=== PATIENT | female | born 1960 | race Caucasian/White ===

== ENCOUNTER → 2024-06-28 06:33 | Outpatient (REF) | payer OTHER, SELFPAY | LOC: HWWDC 06:33 | PROVIDERS: ATTENDING PHYSICIAN Family Medicine | DX: Z12.31 Encounter for screening mammogram for malignant neoplasm of breast (principal) | CPT/HCPCS: 77063; 77067 ==

== ENCOUNTER 2025-06-19 18:06 | Emergency (ER) | payer OTHER, SELFPAY ==
[2025-06-19 18:08] VITALS: BP 146/90
[2025-06-19 18:39] LABS: Urine Character Clear (Clear)
[2025-06-19 18:53] VITALS: BP 129/88
[2025-06-19 19:03] LABS: Urine White Cell 0-2 /HPF (0-5)
--- NOTE | 2025-06-19 19:23 | ED.GENMED ---
History of Present Illness
General
Chief Complaint: Back Pain
Source: patient and spouse
Exam Limitations: none
Time Seen by Provider: 06/19/25 19:04
Nursing documentation reviewed up to this point in time: agreed with
History of Present Illness
History of Present Illness:
64-year-old female with history as noted presents to the ER for evaluation of flank/back pain. Patient reports onset of symptoms 5 days ago and they have been constant since that time although she reports that the intensity waxes and wanes. She
describes a vague deep aching in the right flank that does not radiate. No clear triggering or relieving factors noted�she denies any injury and she says that it is not necessarily related to movement. She denies any radicular symptoms down the
legs. Denies any bowel or bladder incontinence, saddle anesthesia. She denies any dysuria, hematuria, change in frequency, fevers or chills. She denies similar symptoms in the past however chart review shows a visit in 2012 as well as in 2014
with similar symptoms. She says she initially saw her primary doctor Monday and was told it could be a pinched nerve and was prescribed prednisone but after 3 days of prednisone has not noticed significant improvement which prompted ER visit.
Past History
Past History
ED Past Medical History: GERD and Other (Irritable bowel syndrome)
ED Past Surgical History: Orthopedic (Right shoulder and right hand surgery)
Social History
Tobacco: Non-smoker
Alcohol: None
Drug: None
Personal:
Living: with family
Employment: Employed
Review of Systems
Review of Systems
All Other Systems: ROS reviewed and negative except as documented in HPI and ROS
Constitutional: Denies fever or chills
Respiratory: Denies trouble breathing
Cardiac: Denies chest pain
ABD/GI: Denies abdominal pain, nausea or vomiting
: Reports flank pain; Denies dysuria, frequency or bleeding
Musculoskeletal: Reports back pain; Denies neck pain
Neurological: Denies dizzy, headache, weakness or numbness
Phy Exam
Physical Exam
Physical Exam:
General: Awake, alert, oriented x3; no acute distress
Head: Normocephalic, atraumatic
Eyes: Conjunctiva normal, sclera anicteric
Throat: Airway intact, handling secretions
Neck: Trachea midline, supple without meningismus
Lungs: Breathing comfortably without distress
Heart: Regular rate
Abd: Soft, non distended, nontender with no palpable masses
Back: No midline tenderness in the thoracic or lumbar spine and no reproducible tenderness in the paraspinal musculature; negative straight leg raise test bilaterally
Neuro: Cranial nerves grossly intact, speech fluid, motor and sensory intact in the lower extremities bilaterally
Skin: No rash in area of concern
Extremities: No edema in extremities, equal pulses in all extremities
Scores
Heart Failure Risk
Heart Failure Risk Score: Not Applicable
Heart Score for Chest Pain Patients
STEMI patient?: Not applicable
Withdrawal Assessment of Alcohol
Withdrawal Assessment Completed?: Not applicable
Course
Orders/Labs/Results
Orders:
Orders
06/19/25 18:17
Urinalysis Reflex To Culture Urgent
Date Specimen was Collected: 06/19/25
Time Specimen was Collected: 18:12
Urine Microscopic Reflex Cult Urgent
Urine Culture Urgent
EPI Source: U
Specimen Description:
Date Specimen was Collected: 06/19/25
Time Specimen was Collected: 18:12
06/19/25 19:05
CT Abd/pel Without Iv Or Oral Urgent
Comment:
Reason For Exam: right flank pain/low back pain
06/19/25 19:14
Complete Blood Count/With Diff Urgent
Comprehensive Metabolic Panel Urgent
Abnormal Lab Results
06/19/25 06/19/25
18:17 19:14
RBC 3.86 L 10^6/uL
(4.20-5.40)
Hgb 11.6 L g/dL
(12.0-16.0)
Hct 34.3 L %
(37.0-47.0)
Absolute Monos (auto) 0.9 H 10^3/uL
(0.1-0.6)
Monocytes % 9.5 H %
(1.7-9.3)
BUN 22 H mg/dl
(7-17)
Glucose 103 H mg/dl
(70-99)
Ur Occult Blood Reflex 3+ A
(Negative)
Leukocyte Esterase Rfl 1+ A
(Negative)
Urine RBC 3-6 A /HPF
(0-2)
Urine Bacteria (Reflex) Few A
(Negative)
06/19/25 19:14
06/19/25 19:14
Vital Signs
Initial and Last Documented VS:
Initial Vital Signs
Temp Pulse Resp BP Pulse Ox
37.2 C 79 16 146/90 98
06/19/25 18:08 06/19/25 18:08 06/19/25 18:08 06/19/25 18:08 06/19/25 18:08
Last Documented Vital Signs
Temp Pulse Resp BP Pulse Ox
37.2 C 79 16 146/90 98
06/19/25 18:08 06/19/25 18:08 06/19/25 18:08 06/19/25 18:08 06/19/25 19:29
MDM/Problems Addressed
Differential Diagnosis Includes:
Radiculopathy, myofascial strain/muscle spasms, nephrolithiasis, UTI/pyelonephritis; very unlikely to be appendicitis or other intra-abdominal infection given lack of abdominal pain or tenderness
MDM/Problems Addressed:
64-year-old female presents to the ER for evaluation of right flank/low back pain for the past few days waxing waning intensity without clear injury or trigger. Not responding to prednisone prescribed for suspected radiculopathy by primary doctor.
Vitals and exam as above. Urinalysis was sent in triage which was positive for microscopic hematuria but no infection�it does appear to be contaminated. Will plan to check basic labs and CT abdomen/pelvis to evaluate for signs of nephrolithiasis.
Offered pain control, patient declined pending imaging.
Labs reviewed CBC shows marginal anemia essentially stable from prior, CMP no clinically significant abnormalities. CT shows no acute abnormalities in the abdomen pelvis. Suspect likely radiculopathy versus muscular pain. She says Tylenol and
Motrin as well as steroids have been an adequate to control her symptoms; she did trial a muscle relaxer prescribed by her primary doctor which did not help. Will prescribe short-term opioid for pain control. Advised to discontinue muscle relaxer
and continue taking Tylenol and ibuprofen, using opioid only for breakthrough pain. Stable for discharge advised to follow-up with her primary doctor. Provided copy of labs for follow-up. All questions answered.
*Radiology
Radiology exam reviewed: radiology read reviewed
*Pulse Oximetry
SaO2: 98
Oxygen Mode of Delivery: Room air
Patient hypoxic: no (98%)
*Critical Care Note
Total Time (30-74mins, 75-104mins- exclusive of procedures): Not Applicable
Data Reviewed
Review of Other/Old Records Reveals: Labs and Records
Source: patient and spouse
ED Attending Note
-
Portions of this chart may have been created with voice recognition software.� Occasional wrong word or��sound alike� substitutions may have occurred due to the inherent limitations of voice recognition software.
Discharge Plan
Departure
Patient Disposition: Home (Routine Discharge)
Date of Disposition: 06/19/25
Time of Disposition: 20:59
Patient with high blood pressure during this ER visit?: Yes
Discharge Problem:
Back pain
Instructions: Low Back Pain (DC)
Prescriptions:
New
oxycodone 5 mg tablet
5 mg PO TID PRN (Reason: Pain) Qty: 10 0RF
No Action
cyclobenzaprine [Flexeril] 10 MG tablet
10 mg PO TIDPRN PRN (Reason: back pain) Qty: 12 0RF
naproxen 500 MG tablet
500 mg PO BID Qty: 20 0RF
Rx Instructions:
Take with food.
metaxalone [Skelaxin] 800 MG tablet
800 mg PO TID PRN (Reason: back pain) Qty: 15 0RF
naproxen 375 MG tablet,delayed release (DR/EC)
375 mg PO BID Qty: 14 0RF
hydrocodone-acetaminophen [Vicodin] 1 EACH tablet
1 ea PO Q6HPRN PRN (Reason: pain) Qty: 15 0RF
Referrals:
Ada Trinidad DO [Family Provider, Family Practice] - Call in 1-3 days for appt
Activity Restrictions/Additional Instructions:
You should follow-up with your primary care doctor after your ER visit to review labs and follow-up on incidental findings including some mild anemia and small amount of microscopic blood in your urine.
Thank you for visiting the Emergency Department at [facility].
1. Please schedule a follow up appointment as directed. Call first thing tomorrow morning to make an appointment.
2. If indicated, please take your medications as instructed and indicated on discharge paperwork.
3. If any of your symptoms do not improve, or persist, or become more severe within 6-12 hours, please return to the emergency department for further care.
4. Please return to the emergency department if you develop a headache, neck pain/stiffness, fever greater than 100.4F, chest pain, shortness of breath, persistent nausea, vomiting, slurred speech, difficulty walking, numbness/tingling, weakness,
signs of infection or any other symptoms that are worrisome to you.
Please call [phone] if you have any questions.
Interventions
Interventions:
*Risk Screen - Suicide Last Done: 06/19/25 18:08
*General Assessment Last Done: 06/19/25 19:22
*Neglect/Abuse Screening Last Done: 06/19/25 18:08
*ED- Fall Risk Assessment Last Done: 06/19/25 19:22
*ED COVID-19 Vaccine History Last Done: 06/19/25 19:22
ED-Musculoskeletal Assessment Last Done: 06/19/25 19:21
Discharge Date and Time
Print Language: UKRAINIAN
[2025-06-19 19:40] LABS: ALT (SGPT) 20 U/L (0-35); AST (SGOT) 21 U/L (14-36); Albumin 4.3 g/dl (3.5-5.0); Alkaline Phosphatase 53 U/L (38-126); Blood Urea Nitrogen 22 mg/dl (7-17); Calcium 9.1 mg/dl (8.4-10.2); Carbon Dioxide 27 mmol/L (22-30); Chloride 106 mmol/L (98-107); Glucose 103 mg/dl (70-99); Hematocrit 34.3 % (37.0-47.0); Hemoglobin 11.6 g/dL (12.0-16.0); Mean Corp Hgb Conc. 33.8 g/dL (33.0-37.0); Mean Corpuscular Volume 88.9 fL (81.0-99.0); Nucleated Red Blood Cells % 0 %; Platelet Count 291 10^3/uL (130-400); Potassium 4.6 mmol/L (3.5-5.1); Red Cell Dist. Width 13.4 % (11.5-14.5); Sodium 139 mmol/L (135-145); Total Protein 6.7 g/dl (6.3-8.2); eGFR > 60.00
[2025-06-19 20:49] VITALS: BP 134/66
[2025-06-19] MEDS: ROXICODONE 5 MG PO (21:14)
== END 2025-06-19 21:18 | disposition home or self-care (01) ==
LOC: EMR 18:06
PROVIDERS: Student in an Organized Health Care Education/Training Program; EMERGENCY PHYSICIAN Emergency Medicine; FAMILY PHYSICIAN Family Medicine
DX: M54.9 Dorsalgia, unspecified (principal); D64.9 Anemia, unspecified; K21.9 Gastro-esophageal reflux disease without esophagitis; K58.9 Irritable bowel syndrome, unspecified
CPT/HCPCS: 99284; 74176; 80053; 81003; 81015; 85025; 87086

== ENCOUNTER 2025-06-25 18:21 | Emergency (ER) | payer MEDICARE, BC, SELFPAY ==
[2025-06-25 18:21] VITALS: BMI 28.0
[2025-06-25 18:25] VITALS: BP 150/102
[2025-06-25 22:01] VITALS: BP 134/94
--- NOTE | 2025-06-25 22:45 | ED.GENMED ---
History of Present Illness
General
Chief Complaint: Back Pain
Source: patient and spouse
Time Seen by Provider: 06/25/25 22:25
History of Present Illness
History of Present Illness:
64-year-old female presents to the emergency room complaining of pain in the right low back. Pain is specifically located over the right iliac crest. Patient was seen here in the emergency room for this discomfort on June 19. She was
prescribed hydrocodone which did not help. Previous to that ER visit she had seen her primary care provider and had a course of steroids. Her primary care provider prescribed another course of steroids just the other day which was helping
initially. However this morning the pain returned. No focal weakness numbness or tingling. No bowel or bladder dysfunction. No specific injury or activity that seem to set the pain off. She did have an injection years ago for similar type pain
which helped.
Past History
Past History
ED Past Medical History: GERD and Other (Irritable bowel syndrome)
ED Past Surgical History: Orthopedic (Right shoulder and right hand surgery)
Social History
Tobacco: Non-smoker
Alcohol: None
Drug: None
Personal:
Living: with family
Employment: Employed
Phy Exam
Physical Exam
Physical Exam:
General: Awake, Alert, Oriented X3. No acute distress.
Vitals: unremarkable
Head: Atraumatic
Eyes: Pupils equal, EOMI
Throat: Airway intact, no exudates
Neck: Trachea midline
Lungs: Clear and equal b/l
Heart: Regular rate, no murmurs
Abd: Soft, Nontender, No pulsatile mass
Back: No tenderness palpation over the lumbar spine. There is tenderness over the right paraspinal muscular around the L3-4 region and note around the iliac crest. No rash noted.
Neuro: Cranial nerves intact, muscle strength equal bilaterally, cerebellar exam normal
Skin: Warm, dry, no rash
Extremities: pulses equal b/l, no edema
Course
Orders/Labs/Results
Orders:
Orders
06/25/25 22:40
Gabapentin [Neurontin] 300 mg PO NOW STA
06/25/25 22:45
Lidocaine [Lidocaine 4% Patch] 1 patch TOPICAL NOW STA
Apply Lidocaine patch(s) to:: right low back
Vital Signs
Initial and Last Documented VS:
Initial Vital Signs
Temp Pulse Resp BP Pulse Ox
98.2 F 76 16 150/102 97
06/25/25 18:25 06/25/25 18:25 06/25/25 18:25 06/25/25 18:25 06/25/25 18:25
Last Documented Vital Signs
Temp Pulse Resp BP Pulse Ox
98.7 F 81 16 134/94 100
06/25/25 22:01 06/25/25 22:01 06/25/25 22:01 06/25/25 22:01 06/25/25 22:47
MDM/Problems Addressed
Differential Diagnosis Includes:
Zoster, radiculopathy, muscle spasm, sacroiliac dysfunction
MDM/Problems Addressed:
Patient presents with back pain. No evidence for an unstable process. Patient really needs an MRI as an outpatient. Will treat with a lidocaine patch and start gabapentin.
*Pulse Oximetry
SaO2: 100
Oxygen Mode of Delivery: Room air
Patient hypoxic: no
*Critical Care Note
Total Time (30-74mins, 75-104mins- exclusive of procedures): Not Applicable
ED Attending Note
-
Portions of this chart may have been created with voice recognition software.� Occasional wrong word or��sound alike� substitutions may have occurred due to the inherent limitations of voice recognition software.
Discharge Plan
Departure
Patient Disposition: Home (Routine Discharge)
Date of Disposition: 06/25/25
Time of Disposition: 22:45
Patient with high blood pressure during this ER visit?: Yes
Condition: Good
Discharge Problem:
Low back pain
Instructions: Low Back Pain (DC), Radiculopathy (DC), BLOOD PRESSURE
Prescriptions:
New
gabapentin 300 mg capsule
300 mg PO TID Qty: 30 0RF
No Action
cyclobenzaprine [Flexeril] 10 MG tablet
10 mg PO TIDPRN PRN (Reason: back pain) Qty: 12 0RF
naproxen 500 MG tablet
500 mg PO BID Qty: 20 0RF
Rx Instructions:
Take with food.
metaxalone [Skelaxin] 800 MG tablet
800 mg PO TID PRN (Reason: back pain) Qty: 15 0RF
naproxen 375 MG tablet,delayed release (DR/EC)
375 mg PO BID Qty: 14 0RF
hydrocodone-acetaminophen [Vicodin] 1 EACH tablet
1 ea PO Q6HPRN PRN (Reason: pain) Qty: 15 0RF
oxycodone 5 mg tablet
5 mg PO TID PRN (Reason: Pain) Qty: 10 0RF
Referrals:
Jose Sanches MD [Active, Anesthesiology]
Ada Trinidad DO [Family Provider, Family Practice]
Activity Restrictions/Additional Instructions:
Believe your pain is from irritation of a nerve coming out of your spinal canal. Continue taking the steroids. I sent a prescription for a medicine called gabapentin which you can take 3 times a day. Also try Lidoderm patches. I have given you
contact information for a pain management doctor, Dr. Sanches. Call that office in the morning. Discuss obtaining an MRI with your family doctor.
Interventions
Interventions:
*Risk Screen - Suicide Last Done: 06/25/25 18:25
*General Assessment Last Done: 06/25/25 18:25
*Neglect/Abuse Screening Last Done: 06/25/25 18:25
*ED- Fall Risk Assessment Last Done: 06/25/25 22:52
*ED COVID-19 Vaccine History Last Done: 06/25/25 18:25
*Nursing Disposition Last Done: 06/25/25 22:52
ED-Musculoskeletal Assessment Last Done: 06/25/25 22:03
Discharge Date and Time
Discharge Date/Time: 06/25/25 22:52
Print Language: TAIWANESE
[2025-06-25] MEDS: LIDOCAINE 4% PATCH 1 PATCH TOPICAL (22:48)
[2025-06-25] MEDS: NEURONTIN 300 MG PO (22:48)
== END 2025-06-25 22:52 | disposition home or self-care (01) ==
LOC: EMR 18:21
PROVIDERS: EMERGENCY PHYSICIAN Emergency Medicine; FAMILY PHYSICIAN Family Medicine
DX: M54.50 Low back pain, unspecified (principal); K58.9 Irritable bowel syndrome, unspecified
CPT/HCPCS: 99283

== ENCOUNTER → 2025-08-29 06:43 | Outpatient (REF) | payer MEDICARE, BC, SELFPAY | LOC: HWWDC 06:43 | PROVIDERS: ATTENDING PHYSICIAN Physician Assistant Medical; FAMILY PHYSICIAN Family Medicine | DX: Z12.31 Encounter for screening mammogram for malignant neoplasm of breast (principal) | CPT/HCPCS: 77063; 77067 ==